=== PATIENT | female | born 1980 | race Hispanic/Latino ===

== ENCOUNTER 2023-01-18 13:06 | Emergency (ER) | payer OTHER, MEDICARE ==
[~2023-01-18] VITALS: Ht 165.1 cm; Wt 97.1 kg
[2023-01-18 13:52] LABS: BASOPHILS % (AUTO) 0.4 % (0.0-5.0); EOSINOPHILS % (AUTO) 0.8 % (0.0-8.0); HEMATOCRIT 44.1 % (36-48); LYMPHOCYTES % (AUTO) 20.5 % (21.0-51.0); MEAN CORPUSCULAR HEMOGLOBIN 28.2 pg (27.0-33.0); MEAN CORPUSCULAR HGB CONC 32.7 g/dL (32.0-36.0); MEAN CORPUSCULAR VOLUME 86.3 fL (79-99); MONOCYTES % (AUTO) 9.8 % (3.0-13.0); NEUTROPHILS % (AUTO) 68.1 % (40.0-77.0); PLATELET COUNT (AUTO) 262 K/uL (130-400); RED BLOOD CELL COUNT(AUTO) 5.11 MIL/uL (4.00-5.50); RED CELL DISTRIBUTION WIDTH 14.5 % (11.0-15.5); WHITE BLOOD COUNT (AUTO) 12.1 K/uL (4.8-10.8)
[2023-01-18 13:54] LABS: BILIRUBIN,URINE NEGATIVE (NEGATIVE); COLOR,URINE YELLOW (YELLOW); GLUCOSE, URINE (UA) NEGATIVE (NEGATIVE); KETONES,URINE 20 mg/dL (NEGATIVE); LEUKOCYTE ESTERASE ,URINE NEGATIVE Leu/uL (NEGATIVE); NITRATE,URINE NEGATIVE (NEGATIVE); OCCULT BLOOD,URINE NEGATIVE (NEGATIVE); PROTEIN,URINE 70 mg/dL (NEGATIVE); UROBILINOGEN,URINE 0.2 mg/dL (0.2-1.0)
[2023-01-18 13:59] LABS: HCG,QUALITATIVE URINE NEGATIVE (NEGATIVE)
[2023-01-18 14:00] LABS: APPEARANCE,URINE SLIGHTLY CLOUDY (CLEAR)
[2023-01-18] MEDS ORDERED: PANTOPRAZOLE 40 MG/VIAL IVP ONE (14:00)
[2023-01-18] MEDS ORDERED: ONDANSETRON 4MG INJ IVP ONE (14:00)
[2023-01-18] MEDS ORDERED: LACTATED RINGERS 1000ML 1,000 ML IV ONE (14:00)
[2023-01-18] MEDS ORDERED: ACETAMINOPHEN 500 MG TABLET ONE (14:04)
[2023-01-18] MEDS ORDERED: ACETAMINOPHEN 500 MG TABLET PO STA (14:05)
[2023-01-18] MEDS ORDERED: HYDROXYZINE 50MG VIAL 50 MG/ML VIAL IM STA (14:05)
[2023-01-18 14:06] LABS: BACTERIA,URINE RARE /HPF (None Seen); MUCUS,URINE MANY LPF (None Seen); SQUAMOUS EPITHELIAL CELL,UR MANY /HPF (0-2)
[2023-01-18 14:11] LABS: ALBUMIN 4.1 g/dL (3.5-5.0); CREATININE 0.8 mg/dL (0.5-1.5); POTASSIUM 3.7 mmol/L (3.5-5.1); TOTAL PROTEIN, SERUM 7.4 g/dL (6.0-8.3)
[2023-01-18] MEDS ORDERED: KETOROLAC 15MG/ML VIAL (15MG/ML) IV ONE (16:00)
[2023-01-18] MEDS ORDERED: SOLU-MEDROL 125MG VIAL ONE (16:28)
[2023-01-18] MEDS ORDERED: SOLU-MEDROL 125MG VIAL IVP ONE (16:30)
[2023-01-18 16:31] LABS: AMPHET/METH SCREEN,URINE POSITIVE (NEGATIVE); BARBITURATE SCREEN, URINE NEGATIVE (NEGATIVE); BENZODIAZEPINES SCREEN,URINE NEGATIVE (NEGATIVE); CANNABINOID SCREEN,URINE NEGATIVE (NEGATIVE); COCAINE SCREEN,URINE NEGATIVE (NEGATIVE); OPIATE SCREEN,URINE NEGATIVE (NEGATIVE); PHENCYCLIDINE SCREEN,URINE NEGATIVE (NEGATIVE)
[2023-01-18 17:09] VITALS: BP 115/72
== END 2023-01-18 17:08 | disposition home or self-care (01) ==
LOC: EDH 13:06
DX: R11.2 Nausea with vomiting, unspecified (principal); R51.9 Headache, unspecified; E78.00 Pure hypercholesterolemia, unspecified; F41.9 Anxiety disorder, unspecified; F31.9 Bipolar disorder, unspecified; Z90.49 Acquired absence of other specified parts of digestive tract; Z98.890 Other specified postprocedural states; Z88.8 Allergy status to other drugs, medicaments and biological substances
CPT/HCPCS: 99284; 20552; 96374; 96375; 96361; 82550; 84484; 80053; 80305; 85025; 81025; 36415; 81001; 93005; J7120; J2930; J2405; C9113; J1885

== ENCOUNTER 2023-12-25 08:39 | Emergency (ER) | payer OTHER, MEDICARE ==
[~2023-12-25] VITALS: Ht 165.1 cm; Wt 83.9 kg
[2023-12-25 10:38] LABS: MEAN CORPUSCULAR HGB CONC 32.3 g/dL (32.0-36.0); MEAN CORPUSCULAR VOLUME 89.9 fL (79-99); RED BLOOD CELL COUNT(AUTO) 4.34 MIL/uL (4.00-5.50); RED CELL DISTRIBUTION WIDTH 14.3 % (11.0-15.5); WHITE BLOOD COUNT (AUTO) 7.9 K/uL (4.8-10.8)
[2023-12-25 10:45] LABS: APPEARANCE,URINE CLEAR (CLEAR); BILIRUBIN,URINE NEGATIVE (NEGATIVE); COLOR,URINE LIGHT-YELLOW (YELLOW); GLUCOSE, URINE (UA) NEGATIVE (NEGATIVE); KETONES,URINE NEGATIVE (NEGATIVE); LEUKOCYTE ESTERASE ,URINE NEGATIVE Leu/uL (NEGATIVE); NITRATE,URINE NEGATIVE (NEGATIVE); OCCULT BLOOD,URINE MODERATE (NEGATIVE); PROTEIN,URINE NEGATIVE (NEGATIVE); UROBILINOGEN,URINE 0.2 mg/dL (0.2-1.0)
[2023-12-25 10:46] LABS: ADD UA MICROSCOPIC YES
[2023-12-25 10:53] LABS: BACTERIA,URINE RARE /HPF (None Seen); MUCUS,URINE RARE LPF (None Seen); RBC,URINE 0-1 /HPF (0-1); SQUAMOUS EPITHELIAL CELL,UR FEW /HPF (0-2); WBC,URINE 0-1 /HPF (0-1)
[2023-12-25 10:54] LABS: ALBUMIN 3.6 g/dL (3.5-5.0); BILIRUBIN,TOTAL 0.3 mg/dL (0.2-1.0); CREATININE 0.7 mg/dL (0.5-1.5); HCG,QUALITATIVE URINE NEGATIVE (NEGATIVE); POTASSIUM 4.1 mmol/L (3.5-5.1); TOTAL PROTEIN, SERUM 7.3 g/dL (6.0-8.3)
[2023-12-25] MEDS: KETOROLAC 30MG VIAL (30MG/ML) IVP ONE (11:11)
[2023-12-25] MEDS: 0.9%NACL 1000ML 1,000 ML IV ONE (11:11)
[2023-12-25 13:12] VITALS: BP 124/79; PULSE 73; RESP 18; O2SAT 100
== END 2023-12-25 13:13 | disposition home or self-care (01) ==
LOC: EDH 08:39
DX: M54.50 Low back pain, unspecified (principal); N02.9 Recurrent and persistent hematuria with unspecified morphologic changes; E78.00 Pure hypercholesterolemia, unspecified; F31.9 Bipolar disorder, unspecified; Z90.49 Acquired absence of other specified parts of digestive tract; Z98.51 Tubal ligation status
CPT/HCPCS: 99285; 74176; 96374; 96361; 80053; 85027; 81001; 81025; 36415; J7030; J1885

== ENCOUNTER 2024-06-08 13:40 | Emergency (ER) | payer OTHER, MEDICARE ==
[~2024-06-08] VITALS: Ht 165.1 cm; Wt 79.8 kg
[2024-06-08 14:21] LABS: BASOPHILS # (AUTO) 0.06 K/uL (0.00-0.20); BASOPHILS % (AUTO) 0.7 % (0.0-5.0); EOSINOPHILS # (AUTO) 0.05 K/uL (0.00-0.70); EOSINOPHILS % (AUTO) 0.6 % (0.0-8.0); HEMATOCRIT 38.9 % (36-48); IMMATURE GRANULOCYTE ABSOLUTE 0.02 K/uL (0-1); LYMPHOCYTES # (AUTO) 1.7 K/uL (1.0-4.8); LYMPHOCYTES % (AUTO) 21.3 % (21.0-51.0); MEAN CORPUSCULAR HEMOGLOBIN 28.7 pg (27.0-33.0); MEAN CORPUSCULAR HGB CONC 33.2 g/dL (32.0-36.0); MEAN CORPUSCULAR VOLUME 86.6 fL (79-99); MONOCYTES # (AUTO) 0.4 K/uL (0.1-1.0); MONOCYTES % (AUTO) 5.5 % (3.0-13.0); NEUTROPHILS # (AUTO) 5.7 K/uL (1.8-7.7); NEUTROPHILS % (AUTO) 71.7 % (40.0-77.0); PLATELET COUNT (AUTO) 288 K/uL (130-400); RED BLOOD CELL COUNT(AUTO) 4.49 MIL/uL (4.00-5.50); RED CELL DISTRIBUTION WIDTH 14.3 % (11.0-15.5)
[2024-06-08 14:55] LABS: CREATININE 0.7 mg/dL (0.5-1.0); POTASSIUM 3.9 mmol/L (3.5-5.1)
[2024-06-08] MEDS: 0.9%NACL 1000ML 1,000 ML IV ONE (15:07)
[2024-06-08] MEDS: ONDANSETRON 4MG INJ IVP ONE (15:07)
[2024-06-08 15:08] LABS: ALBUMIN 3.5 g/dL (3.5-5.0); BILIRUBIN,DIRECT 0.1 mg/dL (0.0-0.3); BILIRUBIN,TOTAL 0.5 mg/dL (0.2-1.0); MAGNESIUM 1.8 mg/dL (1.80-2.40); TOTAL PROTEIN, SERUM 6.8 g/dL (6.0-8.3)
[2024-06-08 15:13] LABS: SARS-CoV-2, RNA, NAAT NEGATIVE SARS CoV-2 (NEGATIVE)
[2024-06-08 15:24] LABS: APPEARANCE,URINE CLEAR (CLEAR); BILIRUBIN,URINE NEGATIVE (NEGATIVE); COLOR,URINE COLORLESS (YELLOW); GLUCOSE, URINE (UA) NEGATIVE (NEGATIVE); KETONES,URINE 5 mg/dL (NEGATIVE); LEUKOCYTE ESTERASE ,URINE 75 Leu/uL (NEGATIVE); NITRATE,URINE NEGATIVE (NEGATIVE); OCCULT BLOOD,URINE NEGATIVE (NEGATIVE); PROTEIN,URINE NEGATIVE (NEGATIVE); UROBILINOGEN,URINE 0.2 mg/dL (0.2-1.0)
[2024-06-08 15:25] LABS: ADD UA MICROSCOPIC YES
[2024-06-08 15:27] LABS: BACTERIA,URINE RARE /HPF (None Seen); SQUAMOUS EPITHELIAL CELL,UR MOD /HPF (0-2)
[2024-06-08] MEDS: MECLIZINE HCL 25 MG TABLET PO ONE (15:49)
[2024-06-08] MEDS: SOLU-MEDROL 125MG VIAL IVP ONE (15:49)
[2024-06-08] MEDS: 0.9% NACL 500ML IV.SOLN 500 ML IV ONE (15:49)
[2024-06-08] MEDS ORDERED: FLUT16H EN (16:08)
[2024-06-08] MEDS ORDERED: ONDA-243 PO (16:08)
[2024-06-08] MEDS ORDERED: MECL-302 PO (16:08)
[2024-06-08 18:00] VITALS: BP 101/62; PULSE 78; RESP 20; O2SAT 97
== END 2024-06-08 18:11 | disposition home or self-care (01) ==
LOC: EDH 13:40
DX: H81.10 Benign paroxysmal vertigo, unspecified ear (principal); Z20.822 Contact with and (suspected) exposure to COVID-19; R11.2 Nausea with vomiting, unspecified; E86.0 Dehydration; G40.909 Epilepsy, unspecified, not intractable, without status epilepticus; F41.9 Anxiety disorder, unspecified; F32.A Depression, unspecified; Z96.22 Myringotomy tube(s) status; Z98.890 Other specified postprocedural states; Z88.8 Allergy status to other drugs, medicaments and biological substances; Z79.899 Other long term (current) drug therapy
CPT/HCPCS: 99285; 96374; 87635; 96361; 96375; 80076; 83735; 80048; 84703; 83690; 85025; 86850; 86900; 86901; 87086; 81001; 36415; 93005; 80177; J7040; J7030; J2919; J2405